=== PATIENT | male | born 1950 | race Caucasian/White ===

== ENCOUNTER 2024-07-26 08:01 | Observation (INO) ==
--- NOTE | 2024-05-10 15:04 | PAT Medication Instructions ---
Medication Instructions Date of Service May 10, 2024 Home Medications cholecalciferol (vitamin D3) 25 mcg (1,000 unit) chewable tablet (Vitamin D3) 3,000 unit PO BID lisinopril 10 mg tablet 10 mg PO QAM simvastatin 40 mg tablet 20 mg PO HS omeprazole 20 mg capsule,delayed release 20 mg PO BID amlodipine 5 mg tablet 5 mg PO HS DO NOT take the morning of surgery cholecalciferol (vitamin D3) 25 mcg (1,000 unit) chewable tablet (Vitamin D3) 3,000 unit PO BID lisinopril 10 mg tablet 10 mg PO QAM Take morning of surgery With a small sip of water, OTHERWISE NOTHING TO EAT OR DRINK AFTER MIDNIGHT: omeprazole 20 mg capsule,delayed release 20 mg PO BID Take evening before surgery cholecalciferol (vitamin D3) 25 mcg (1,000 unit) chewable tablet (Vitamin D3) 3,000 unit PO BID simvastatin 40 mg tablet 20 mg PO HS omeprazole 20 mg capsule,delayed release 20 mg PO BID amlodipine 5 mg tablet 5 mg PO HS Other Notes If you have any questions please call us at [phone] or [phone] or [phone] or [phone]
--- NOTE | 2024-05-13 10:32 | Anesthesiology Consultation ---
Date of Service May 13, 2024 Assessment & Plan (1) Encounter for pre-operative examination: - Infectious disease screening: Per assessment on 05/13/24: No known recent infectious disease contacts. Patient was Covid positive 04/20/24 (home test): congestion, cough > resolved. Patient can proceed as scheduled without additional preop Covid testing or additional Covid contact precautions per protocol. - Outpatient joint assessment: Pt currently scheduled for inpatient pathway. If surgeon requests review for outpatient joint pathway, patient is an acceptable candidate for outpatient joint program from anesthesia standpoint pending surgeon's office assessment that patient is motivated, has good support and completes [facility] Day Joint Program preop requirements. - Patient acceptable risk for surgery pending surgeon-ordered PCP preop evaluation (Dr. Daniela Hare, appt 05/26). Chart Review Chart Review: Patient seen in Pre Admission Testing Teaching & Discussion Pre-Anesthesia Teaching/Discussion Notes: Instructed NPO after midnight before surgery,except medications with 15 cc of water. Medication instructions provided according to the PAT guidelines. History Surgery Operation Date: 06/07/24 07:00 Proposed Procedures p Left Total Knee Arthroplasty - Abram Kinney MD Height/Weight Height: 5 ft 7 in Weight: 97.7 kg Allergies Allergy/AdvReac Type Severity Reaction Status Date / Time Penicillins Allergy Intermediate Diffuse Verified 05/10/24 16:19 rash Medications Home Medications Medication Instructions Recorded Confirmed Last Taken cholecalciferol (vitamin D3) 25 3,000 unit PO BID 07/27/19 05/10/24 08/10/19 mcg (1,000 unit) chewable tablet (Vitamin D3) lisinopril 10 mg tablet 10 mg PO QAM 07/27/19 05/10/24 08/10/19 simvastatin 40 mg tablet 20 mg PO HS 07/27/19 05/10/24 08/09/19 omeprazole 20 mg capsule,delayed 20 mg PO BID 08/01/19 05/10/24 08/10/19 release amlodipine 5 mg tablet 5 mg PO HS 05/10/24 05/10/24 Unknown Past Medical History Medical History History of COVID-19 04/20/24 (home test): congestion, cough > resolved Hyperlipidemia Hypertension Osteoarthritis Exercise / Class Metabolic Activity II 4-5 Yardwork/Stairs/Walk up hill (one FS: No CP, no SOB) Past Surgical History Surgical History History of colonoscopy History of ear surgery Ear drum repair History of lung surgery Right side "scar tissue removed" (2006) History of surgery on arm right, with hardware Hx of hand surgery left, with hardware Hx of knee surgery ACL repair, right Hx of parathyroidectomy Hx of surgical procedure left leg Hx of surgical procedure Left Tibia Hardware Removal Past Anesthesia History No Hx of Anesthesia Complications and No Family Hx of Anesthesia Complications History of PONV No Hx of PONV and No Hx of Motion Sickness Social History Smoking Status: Former smoker Do You Dip or Chew Tobacco: No Smoking End Date: Quit 1984 Hx Alcohol Use: Yes Alcohol type: beer alcohol intake frequency: a few times a month Hx Substance Use: No substance use type: does not use Review of Systems Patient denies chest pain, shortness of breath, dyspnea on exertion, fever, chills, cough, wheezing, palpitations. Physical Exam Vital Signs BP 143/79 P 62 TEMP 98.1 SP02 96%RA RESP 18 Physical Full cervical extension range of motion. Full TMJ range of motion. TMD 2.5 finger breaths Mallampati Score III Dentition: missing sides > Getting 2 teeth pulled 05/27/2024 (surgeon aware) Lungs: clear throughout to auscultation Cardiac: regular rate and rhythm, no murmurs noted Spine: normal Carotid arteries: negative bruit Extremities: no LE edema Lab Results Anesthesia Preop Results Results Anesthesia Widget: WBC 7.54 K/ul (4.8-10.8) 05/13/24 Hgb 13.8 g/dl (14.0-18.0) L 05/13/24 Hct 42.0 % (42.0-52.0) 05/13/24 Plt 249 K/uL (130-400) 05/13/24 Na 138 mmol/L (136-145) 05/13/24 K 3.8 mmol/L (3.5-5.1) 05/13/24 Cl 105 mmol/L (98-107) 05/13/24 CO2 26 mmol/L (21-32) 05/13/24 BUN 13 mg/dl (6-23) 05/13/24 Creat 0.90 mg/dl (0.6-1.4) 05/13/24 Glucose Level 92 mg/dl (70-99(Fasting)) 05/13/24 PT 10.6 Seconds (9.0-12.0) 05/13/24 PTT 27 Seconds (21-31) 05/13/24 INR 1.0 (0.9-1.1) 05/13/24 Blood Type A Positive 05/13/24 Antibody Screen NEGATIVE 05/13/24 Testing Electrocardiogram Date: 05/13/24 SB at 56bpm. "Otherwise normal ECG" Chest X-Ray Date: 05/13/24 FINDINGS: There are stable postoperative findings within the right upper lung. No pneumothorax or pleural effusion. There is no consolidation to suggest pneumonia. Cardiomegaly is unchanged. No evidence for pulmonary edema. IMPRESSION: No acute cardiopulmonary findings. No change in appearance of the chest.
[~2024-07-26 08:01] MED LIST: ALLERGY Noted to ORDERED Medication SCH; BUPIVACAINE 0.25% PF 30 ML VIAL ONE; BUPIVACAINE 0.5 % 5 MG/1 ML PF 10ML VIAL ONE; ceFAZolin 2000MG 2,000 MG/15 ML SYR IV SCH
[2024-07-26] MEDS: SODIUM CHLORIDE 0.9% 1,000 ML IV SCH (08:49)
[2024-07-26] MEDS: GABAPENTIN 300 MG CAP PO SCH (08:49)
[2024-07-26] MEDS: CeleBREX 200 MG CAP PO SCH (08:49)
[2024-07-26] MEDS: ACETAMINOPHEN 500 MG TAB PO SCH ×2 (08:49→15:30)
[2024-07-26] MEDS: dexAMETHasone**PF** 10 MG/ML VIAL IV SCH (08:49)
[2024-07-26] MEDS: METOCLOPRAMIDE HCL 10 MG TABLET PO SCH (08:49)
[2024-07-26] MEDS: oxyCODONE HCL 10 MG TABCR (OxyCONTIN) PO SCH (08:49)
[2024-07-26] MEDS: traMADol HCL 50 MG TABLET PO SCH (08:50)
[2024-07-26] MEDS: LR 60ML/HR IV SCH (08:50)
[2024-07-26] MEDS ORDERED: ONDANSETRON INJ 2 MG/ML 2 ML VIAL ONE (09:04)
[2024-07-26] MEDS ORDERED: PHENYLEPHRINE 100MCG/ML 5ML SYR ONE (09:04)
[2024-07-26] MEDS ORDERED: MIDAZOLAM HCL 1 MG/ML 2ML VIAL ONE (09:05)
[2024-07-26] MEDS ORDERED: PROPOFOL IV EMULSION 10 MG/ML 20 ML VIAL IV ONE ×3 (09:07→12:53)
[2024-07-26] MEDS ORDERED: fentaNYL citrate PF 100 MCG/2 ML VIAL IV PRN (09:14)
[2024-07-26] MEDS ORDERED: ePHEDrine sulfate 50 MG/ML AMP IV PRN (09:14)
[2024-07-26] MEDS ORDERED: ONDANSETRON INJ 2 MG/ML 2 ML VIAL IV PRN ×2 (09:14→15:00)
[2024-07-26] MEDS ORDERED: PROMETHAZINE HCL 6.25 MG in SODIUM CHLORIDE 0.9% 50 ML IV PRN (09:14)
[2024-07-26] MEDS ORDERED: ATROPINE SULFATE 0.1 MG/ML 10ML SYR IV PRN (09:14)
[2024-07-26 09:36] LABS: Partial Thromboplastin Time 28 Seconds (21-31); Prothrombin Time 10.8 Seconds (9.0-12.0)
--- NOTE | 2024-07-26 09:41 | History & Physical Bridge Note ---
Date of Service July 26, 2024 History & Physical Bridge Note I have examined the patient, reviewed the History & Physical and in the interval since the performance of the History & Physical I have noted the following changes of clinical significance: no changes noted
[2024-07-26] MEDS: TRANEXAMIC ACID 1,000 MG **IV Pre-op IV SCH (10:10)
[2024-07-26] MEDS: ceFAZolin 2000MG 2,000 MG/15 ML SYR IV ONE (10:26)
[2024-07-26] MEDS ORDERED: ePHEDrine sulfate 50 MG/5 ML SYR ONE (10:46)
[2024-07-26] MEDS: ORTHO JOINT ANESTHETIC ONE (11:43)
[2024-07-26] MEDS: VANCOMYCIN HCL 1000MG/20ML VIAL ONE ×2 (12:32→12:50)
[2024-07-26] MEDS: ROPIV 0.5% 246mg, Ketorolac 30mg, EPINEPHrine 0.5mg in NSS INFIL SCH (12:47)
--- NOTE | 2024-07-26 13:51 | Post Operative Brief Note ---
Immediate Post Op Note Date of Surgery July 26, 2024 Pre & Post Diagnosis Operation Date: 07/26/24 10:20 Pre-Op Diagnosis: Left Knee Osteoarthritis Post-Op Diagnosis: Left Knee Osteoarthritis I identified the patient and participated in the time-out.: Yes Procedure Operation Date: 07/26/24 10:20 Actual Procedures p Left Total Knee Arthroplasty(Left) - Abram Kinney MD Surgeon Abram Kinney MD Business Development Associate [facility] [address] office assistant no resident or fellow available Estimated Blood Loss 10 Findings Consistent with Post-Op Diagnosis Anesthesia Type MAC Spinal Regional Complications none Disposition Disposition: Recovery Room
--- NOTE | 2024-07-26 13:55 | Operative Report ---
Post Operative Report Pre & Post Diagnosis Operation Date: 07/26/24 10:20 Pre-Op Diagnosis: Left Knee Osteoarthritis Post-Op Diagnosis: Left Knee Osteoarthritis I identified the patient and participated in the time-out.: Yes Procedure Operation Date: 07/26/24 10:20 Actual Procedures p Left Total Knee Arthroplasty(Left) - Abram Kinney MD Surgeon Abram Kinney M.D. [place] [employer] [facility] physicians health care assistant no resident or fellow available Estimated Blood Loss 10 Findings Consistent with Post-Op Diagnosis Specimens bone and soft tissue Anesthesia Type MAC Spinal Regional Description of Procedure Patient was taken to the operating room and placed under IV sedation with spinal anesthesia. Peripheral nerve block was given preoperatively. He was given 2 g of IV Ancef for surgical prophylaxis. He was given 1 g of IV TXA preoperatively for bleeding prophylaxis. Time out was performed. He was prepped and draped in routine sterile fashion. I was present during the entire case. Please see Dr. Kinney's operative report for further details regarding today's procedure. Patient was awakened and transferred to the recovery room in stable condition. I attest to the content of the Intraoperative Record and any orders documented therein. Any exceptions are noted below.
--- NOTE | 2024-07-26 14:54 | XRay Report ---
XR knee LT 1 or 2V routine HISTORY: 74 years-old Male Surgical Post Op COMPARISON: CT 07/21/2024 TECHNIQUE: 2 views of the left knee FINDINGS: Satisfactory alignment of the total joint arthroplasty with patellar resurfacing. Anterior midline sk in brit with expected postoperative soft tissue swelling and deep tissue air. Unchanged chronic sc lerosis and cortical thickening of the proximal tibia. IMPRESSION: Satisfactory alignment of the total joint arthroplasty. ACT 112: Negative or not required by law. The above report was generated using voice recognition software. It may contain grammatical, syntax o r spelling errors. Electronically signed by: Rachid López M.D. 07/26/2024 2:52 PM
[2024-07-26] MEDS ORDERED: traMADol HCL 50 MG TABLET PO PRN (15:00)
[2024-07-26] MEDS ORDERED: MAGNESIUM HYDROXIDE SUSP 30 ML UDC PO PRN (15:00)
[2024-07-26] MEDS ORDERED: oxyCODONE HCL IR 5 MG TAB (IMMEDIATE RELEASE) PO PRN (15:00)
[2024-07-26] MEDS ORDERED: bisacodyL 10 MG SUPP PR PRN (15:00)
[2024-07-26] MEDS ORDERED: TAMSULOSIN HCL 0.4 MG CAP PO PRN (15:00)
[2024-07-26] MEDS ORDERED: NALOXONE HCL 0.4 MG/1 ML VIAL/CARP IV PRN (15:00)
[2024-07-26] MEDS ORDERED: HYDROmorphone INJ 0.5 MG/0.5 ML SYR IV PRN (15:00)
[2024-07-26] MEDS ORDERED: HYDROmorphone INJ 1 MG/ML SYRINGE IV PRN (15:00)
[2024-07-26] MEDS: LR 500ML BOLUS, THEN 15ML/HR IV SCH (15:02)
[2024-07-26] MEDS: ceFAZolin 2,000 MG/15 ML IV PUSH IV ONE (15:02)
[2024-07-26] MEDS: KETOROLAC TROMETHAMINE 15 MG/ML VIAL IV SCH (15:30)
--- NOTE | 2024-07-26 16:48 | Orthopedic Progress Note ---
Date of Service July 26, 2024 Assessment & Plan (1) S/P total knee arthroplasty: Plan: Postop day 0-left total knee arthroplasty with Dr. Kinney Regular diet has been ordered. Out of bed with nursing this evening and start OT and PT tomorrow. He may weight-bear as tolerated on left lower extremity with the assistance of a walker at all times. Knee immobilizer to left knee when out of bed for the next 2 to 3 days. Home medications have been continued. Eliquis to start tomorrow. He will be on this for 2 to 4 weeks after surgery. Thigh-high KRISHNA stockings and AV impulse boots during his inpatient stay. Plans for CBC, BMP tomorrow morning. Pain medication as prescribed. Plans for discharge home in the next day or 2 with home health. Will re-eval in the AM and discuss possible discharge. Admission and Anticipated Discharge Date Admission Date: July 26, 2024 Ar Bob is resting in bed. He states he does feel uncomfortable in the bed. He does not have a significant amount of pain in his left leg. He states that he does feel that the spinal have worn off. Denies any numbness or tingling in his leg. His is at bedside. He has not had anything to eat. Denies any postoperative nausea, vomiting, lightheadedness or dizziness, chest pains or shortness of breath. Physical Exam Musculoskeletal: Exam of his left lower extremity: Distal pulses are 1+. Toes are warm. Full active flexion extension of all of his toes. Strength is 5/5 with dorsiflexion of the great toe, plantarflexion of the great toe and dorsiflexion, plantarflexion, inversion and eversion of the left ankle. Normal sensation throughout the left. He is able to independently straight leg raise his left leg. Tolerates logrolling of his hip. His postoperative dressings are clean, dry and intact. Left in place today. Results & Data Vital Signs (Past 12 Hours) Vital Signs Temp Pulse Pulse Resp BP Pulse Ox O2 Del Method 07/26/24 16:00 36.4 C L 80 16 130/72 96 Nasal Cannula 07/26/24 15:30 36.4 C L 82 16 127/74 96 Nasal Cannula 07/26/24 15:00 36.4 C L 90 16 110/66 97 Nasal Cannula 07/26/24 14:40 36.6 C 84 12 103/70 95 Nasal Cannula 07/26/24 14:30 86 20 102/72 95 Nasal Cannula 07/26/24 14:20 88 14 115/59 L 94 Room Air 07/26/24 14:10 93 H 12 98/57 L 96 Oxymask 07/26/24 14:00 89 17 127/75 97 Oxymask 07/26/24 13:52 37.2 C 96 H 18 118/89 94 Oxymask 07/26/24 09:09 36.6 C 70 20 148/91 H 96 Room Air O2 Flow Rate 07/26/24 16:00 2 07/26/24 15:30 2 07/26/24 15:00 2 07/26/24 14:40 2 07/26/24 14:30 2 07/26/24 14:20 07/26/24 14:10 4 07/26/24 14:00 6 07/26/24 13:52 8 07/26/24 09:09 Laboratory Results Lab Results 07/26/24 Range/Units 08:30 PT 10.8 (9.0-12.0) Seconds INR 1.0 (0.9-1.1) APTT 28 (21-31) Seconds PTT Ratio 1.0 POC Glucose 111 H (70-99) mg/dl Blood Type A Positive Antibody Screen NEGATIVE Diagnostic Findings XR knee LT 1 or 2V routine HISTORY: 74 years-old Male Surgical Post Op COMPARISON: CT 07/21/2024 TECHNIQUE: 2 views of the left knee FINDINGS: Satisfactory alignment of the total joint arthroplasty with patellar resurfacing. Anterior midline skin brit with expected postoperative soft tissue swelling and deep tissue air. Unchanged chronic sclerosis and cortical thickening of the proximal tibia. IMPRESSION: Satisfactory alignment of the total joint arthroplasty.
[2024-07-26] MEDS: TRANEXAMIC ACID / 0.7% NACL 1,000 MG/100 ML BAG IV SCH (20:59)
[2024-07-26] MEDS: CHOLECALCIFEROL 25 MCG (1000 UNITS) TAB PO SCH (21:00)
[2024-07-26] MEDS: amLODIPine BESYLATE 5 MG TAB PO SCH (21:00)
[2024-07-26] MEDS: SENNA 8.6 MG TAB PO SCH (21:00)
[2024-07-26] MEDS: DOCUSATE SODIUM 100 MG CAP PO SCH (21:00)
[2024-07-26] MEDS: ATORVASTATIN 20 MG TAB PO SCH (21:01)
[2024-07-26] MEDS: ceFAZolin 2000MG 2,000 MG/15 ML SYR IV SCH (21:18)
--- OUTSIDE RECORDS SUMMARY | 2024-07-27 01:40 | External Medical Summary | Continuity of Care Document ---
Author Name Unknown Organization [id number] Address [address] [place] [address] [id number] Care Team Providers Care Membership Assistant Name Role Phone Zion Hood Primary Care Physician [phone] Encounter [facility] [id number] Date(s): 07/20/24 - 07/20/24 [facility] [address] [address] [id number] [facility] [address] [place] [id number] Encounter Diagnosis Primary osteoarthritis of left knee(Discharge Diagnosis) - 07/20/24 Discharge Disposition: Home or Self Care Attending Physician: MD Gregoria, Abram Souza Referring Physician: MD Kinney Paul S Allergies, Adverse Reactions, Alerts Substance Criticality Severity Reaction Reaction Severity Status penicillins Active Medications lisinopril 10 mg oral tablet Start: 09/14/13 8:01:00 AM EST, 1 tab, PO, Daily Start Date: 09/14/13 Status: Ordered multivitamin Start: 08/29/21 10:51:00 AM EST, 1 tab, PO, Daily Start Date: 08/29/21 Status: Ordered omeprazole Start: 08/01/19 8:06:00 AM EST, 20 mg =, PO, bid Start Date: 08/01/19 Status: Ordered simvastatin 40 mg oral tablet Start: 09/14/13 8:01:00 AM EST, 1 tab, PO, qhs Start Date: 09/14/13 Status: Ordered Vitamin D3 Start: 08/03/18 7:54:00 AM EST, 3000, Daily Start Date: 08/03/18 Status: Ordered Problem List Condition Confirmation Course Effective Dates Status Health Status Informant Fracture of middle phalanx of finger Confirmed Active Hypercholesterolemia Confirmed Active Hypertensive disorder Confirmed Active Knee pain Confirmed Active Retained orthopedic hardware Confirmed Active Osteoarthritis of knee Confirmed Active Primary osteoarthritis of left knee Confirmed Active Weight monitoring Confirmed Active Diagnosis Diagnosis Type Effective Dates Health Status Clinical Service Informant Primary osteoarthritis of left knee Discharge Diagnosis 07/20/24 Non-Specified Procedures Procedure Date Related Diagnosis Body Site Status Incision and removal of orth opedic device 1 08/11/19 Completed 1Deep hardware removal left tibia Social History Social History Type Response Smoking Status Never smoked cigaret louie Sex Male Sex Representation Male (finding) Patient Care team information Care Team Related Persons Name: AB ZAMORA
[2024-07-27 01:48] VITALS: RESP 18
[2024-07-27 04:46] VITALS: TEMP 98.1
[2024-07-27 07:17] VITALS: BP 119/61; PULSE 73; O2SAT 97
[2024-07-27 08:04] LABS: Hematocrit (blood only) 37.8 % (42.0-52.0); Hemoglobin 12.3 g/dl (14.0-18.0); Mean Corpuscular Hgb Conc 32.5 g/dL (32.0-36.0); Mean Corpuscular Volume 89.2 fL (80.0-100.0); Mean Platelet Volume 9.4 fL (9.4-12.4); Platelet Count 273 K/uL (130-400); RDW Coefficient of Variation 13.2 % (11.5-14.5); RDW Standard Deviation 42.6 fL (36.4-46.3); Red Blood Count 4.24 M/uL (4.70-6.10); White Blood Count 21.68 K/ul (4.8-10.8)
[2024-07-27 08:17] LABS: BUN Creatinine Ratio 26.6 (10-20); Calcium 8.5 mg/dl (8.6-10.3); Potassium 4.2 mmol/L (3.5-5.1)
[2024-07-27] MEDS ORDERED: NON-FORMULARY MEDICATION (Multivitamin Tablet) PO SCH (09:00)
[2024-07-27] MEDS: PANTOprazole 40 MG TAB PO SCH (09:15)
[2024-07-27] MEDS: APIXABAN 2.5 MG TAB PO SCH (09:15)
[2024-07-27] MEDS: lisinopril 10 MG TAB PO SCH (09:15)
[2024-07-27] MEDS: dexAMETHasone 4 MG TAB PO SCH (09:15)
[2024-07-27] MEDS: MULTIVITAMIN TAB PO SCH (09:15)
--- NOTE | 2024-07-27 10:39 | Orthopedic Progress Note ---
Date of Service July 27, 2024 Assessment & Plan (1) S/P total knee arthroplasty: Plan: Doing well. White count likely elevated secondary to stress and perioperative steroids. He is stable for discharge. He has follow-up in 2 weeks. If there is any problems with pain fevers swelling wound drainage or any other problems or questions please contact my office. He will be on oxycodone and Ultram. Stool softener plus his regular medications and the Eliquis. The importance of the Eliquis is discussed. Home therapy and nursing. Wound care and bathing instructions are given. Rest most of the time elevate and ice the knee. Icing instructions are given 15 to 20 minutes every 3 hours or so. Do not ice continuously. Activity levels should be off of his feet 80 to 90% of the time and standing and walking for only short periods of time. Do not advance activities beyond what we have discussed. Use the walker at all times. He does not need the knee immobilizer. X-rays are reviewed along surgical findings. Admission and Anticipated Discharge Date Admission Date: July 26, 2024 Subjective Doing well. Pain is minimal. Already had PT and OT and did well. Has been out of bed. Using a walker. No tingling or numbness. Pain is well-controlled. No chest pains or shortness of breath. He is tolerating an oral diet. Physical Exam Physical Exam: He is alert and in no acute distress. DP and PT pulses are both 1+. Sensation is intact throughout the left foot. He has 5 out of 5 ankle and toe plantarflexion dorsiflexion inversion and eversion strength. He is able to do a straight leg raise without significant lag. He is able to reposition himself back into bed from the chair. Dressing is clean and dry. Foot swelling is minimal. Results & Data Vital Signs (Past 12 Hours) Vital Signs Temp Pulse Resp BP Pulse Ox O2 Del Method 07/27/24 07:16 36.7 C 73 18 119/61 97 Room Air 07/27/24 04:44 36.7 C 77 18 112/65 96 Room Air 07/27/24 01:47 36.6 C 81 18 128/69 94 Room Air Laboratory Results Laboratory Results WBC 21.68 K/ul (4.8-10.8) H 07/27/24 07:07 RBC 4.24 M/uL (4.70-6.10) L 07/27/24 07:07 Hgb 12.3 g/dl (14.0-18.0) L 07/27/24 07:07 Hct 37.8 % (42.0-52.0) L 07/27/24 07:07 MCV 89.2 fL (80.0-100.0) 07/27/24 07:07 MCH 29.0 pg (25.0-34.0) 07/27/24 07:07 MCHC 32.5 g/dL (32.0-36.0) 07/27/24 07:07 RDW Std Deviation 42.6 fL (36.4-46.3) 07/27/24 07:07 RDW Coeff of Ginger 13.2 % (11.5-14.5) 07/27/24 07:07 Plt Count 273 K/uL (130-400) 07/27/24 07:07 MPV 9.4 fL (9.4-12.4) 07/27/24 07:07 PT 10.8 Seconds (9.0-12.0) 07/26/24 08:30 INR 1.0 (0.9-1.1) 07/26/24 08:30 APTT 28 Seconds (21-31) 07/26/24 08:30 PTT Ratio 1.0 07/26/24 08:30 Sodium 139 mmol/L (136-145) 07/27/24 07:07 Potassium 4.2 mmol/L (3.5-5.1) 07/27/24 07:07 Chloride 107 mmol/L (98-107) 07/27/24 07:07 Carbon Dioxide 24 mmol/L (21-32) 07/27/24 07:07 Anion Gap 8 (3-11) 07/27/24 07:07 BUN 37 mg/dl (6-23) H 07/27/24 07:07 Creatinine 1.39 mg/dl (0.6-1.4) 07/27/24 07:07 Est Cr Clr Drug Dosing 51.0 ml/min 07/27/24 07:07 eGFR 52.87 07/27/24 07:07 BUN/Creatinine Ratio 26.6 (10-20) H 07/27/24 07:07 Glucose 141 mg/dl (70-99(Fasting)) H 07/27/24 07:07 POC Glucose 111 mg/dl (70-99) H 07/26/24 08:30 Calcium 8.5 mg/dl (8.6-10.3) L 07/27/24 07:07 Blood Type A Positive 07/26/24 08:30 Antibody Screen NEGATIVE 07/26/24 08:30 Impressions Knee X-Ray 07/26/24 13:59 XR knee LT 1 or 2V routine HISTORY: 74 years-old Male Surgical Post Op COMPARISON: CT 07/21/2024 TECHNIQUE: 2 views of the left knee FINDINGS: Satisfactory alignment of the total joint arthroplasty with patellar resurfacing. Anterior midline skin brit with expected postoperative soft tissue swelling and deep tissue air. Unchanged chronic sclerosis and cortical thickening of the proximal tibia. IMPRESSION: Satisfactory alignment of the total joint arthroplasty. ACT 112: Negative or not required by law. The above report was generated using voice recognition software. It may contain grammatical, syntax or spelling errors. Electronically signed by: Rachid López M.D. 07/26/2024 2:52 PM
--- NOTE | 2024-07-27 10:46 | Operative Report ---
Post Operative Report Pre & Post Diagnosis Operation Date: 07/26/24 10:20 Pre-Op Diagnosis: Left Knee Osteoarthritis Post-Op Diagnosis: Left Knee Osteoarthritis I identified the patient and participated in the time-out.: Yes Procedure Operation Date: 07/26/24 10:20 Actual Procedures p Left Total Knee Arthroplasty(Left) - Abram Kinney MD Surgeon Abram Kinney MD Wringer Operator Cori Luna physicians ophthalmic surgical assistant no resident or fellow available Estimated Blood Loss 10 Findings Consistent with Post-Op Diagnosis Specimens None Anesthesia Type MAC Spinal Regional Complications none Disposition Accompanied Patient To Recovery: No Disposition: Recovery Room Indications Paulino is 74 years old. He has severe osteoarthritis of his left knee. Approximately 25 years ago he had a proximal tibial osteotomy with a dynamic external fixator. This did not heal. He subsequently required an ORIF with a bone graft plate and screws. This subsequently healed but his knee arthritis has continued to progress. He is very active and plays softball. In preparation for knee replacement a couple years ago I went back operated on him and took out the plate and screws debrided some nonviable bone graft and took m ultiple cultures of the tibia none of which grew any bacteria. He recently had a tooth extracted that is completely healed. His surgery was postponed initially because of that. The previous surgery had resulted in a small medial cortical defect. This was assessed on a preoperative CT scan showing a persistent bony defect less than 2 cm in size. This was noted at the previous surgery. Because of this I have recommended that we use a stem on the tibia to bypass this defect for added stability and safety. Description of Procedure Informed consent obtained. Patient identified. He identified the procedure site as the left knee. I marked with my initials. Preop surgical timeout performed. Preop dose of IV antibiotics given. Taken to the operating room positioned supine on the OR table. The anesthetic was administered. Tourniquet applied to the left thigh. A bump under the left hip and a padded bump under the left calf. The leg was prepped and draped in usual sterile fashion. The leg was free of any superficial wounds. DVT prophylaxis intraoperatively with a foot pump on the nonoperative leg. Postoperatively early mobility mechanical devices and Eliquis. The exam under anesthesia showed 1+ MCL laxity at 20 degrees knee flexion slight LCL laxity in the same position. The knee was stable in full extension with a fixed varus deformity. There was a prior proximal medial tibial incision just medial to midline. Positive Carlos Manuel intact posterior drawer range of motion 0/7/130. Limb exsanguinated the Esmarch. Tourniquet inflated to 250 mmHg. The previous incision was opened at its proximal extent and then this was extended in a lazy S type fashion towards the midline and proximally into the galena version tissu e. Minimal flap was elevated medially. The patellar tendon was identified along with its medial aspect. Dense scar tissue was electrocauterized distally down to the level of the tibia. A medial parapatellar arthrotomy was performed. An extensile medial release was performed. Retropatellar fat pad tissue removed. Soft tissue on the anterior aspect of the distal femur was excised. There was some synovitis in the suprapatellar pouch and lateral gutter which showed some hemosiderin staining and this was debrided. The patella was mobile and no lateral release was performed. Patellar cartilage showed mostly grade 1 change. The lateral compartment was normal in terms of cartilage. There were a couple bone spurs on the superior patella and extensive spurring about the tibiofemoral joint mainly medial more so than lateral. There were severe grade 4 changes with eburnation and wear of the medial compartment and wearing of the tibial spines. Large osteophytes were noted. Osteophytes throughout the knee were debrided as encountered. The knee was able to be flexed and the patella easily everted. The ACL was absent. Notch osteophytes were debrided. The PCL was resected and the tibia was subluxated. Significant wear and cupping of the tibia. Medial osteophytes debrided around to the posterior medial corner. The release was extended around the posterior medial corner and down the posterior medial tibia later. Extensive scarring in this area. A fuel pilot engineer hole was drilled just in front of and slightly lateral to the medial tibial spine based upon preoperative templating and intramedullary norman was introduced. The 3 degree cutting block was applied and set to resect 10 mm off of the lateral side corresponding to about a 4 mm cut medially. This guide was pinned into place. The extramedullary alignment norman was applied and found to have varus alignment for the cut. This was manually corrected back to the desired position parallel to the long axis of the tibia intersecting the second ray and bisecting the ankle joint and pinned into place. This cut was then made. A fuel pilot engineer hole was drilled into the distal femur just above the PCL insertion. Intramedullary norman inserted with the cutting jig set to left knee 7 degrees based on preoperative templating and a an 11 mm thick cut based upon flexion contracture. This was pinned in the place and the cut was made. The extension gap at this point was a symmetric 8. The epicondylar axis was marked out distal femoral sizing block was applied. It measured a 7-1/2. It was pinned for an 8 and the 7 block was applied. I ensured that there was no anterior notching. The collateral ligaments were protected. The alignment match the epicondylar axis. Rectangular flexion gap. Cuts were made. Osteophytes posteriorly mostly medial more so than lateral removed. A 10 block could be applied with some laxity laterally. Also fit and extension. With further releases medially I was able to get a 12 mm block in both in flexion and extension with no residual laxity and full extension of the knee. The box cutting guide was applied lateralized and the box cut was made. The trial femoral component was applied and the lug holes were drilled. Hand reaming was performed starting at about 9.5 mm on the tibia to the depth for a 110 mm press-fit stem. This continued up to 13 and 14 mm where there was good cortical hand chatter. I then went up to 15 mm to accommodate for the press-fit stem. This trial component was then assembled with a 7 baseplate and a straight 110 mm stem. The remainder of the proximal tibia was prepared with the entry reamer and the keel punch. The trial fit nicely and aligned to the tibial tubercle without any overhang. It was a couple millimeters lateral to the lateral cortex. This component was selected and did not need any offset. Trialing was performed with 10 and 12 which both worked out well. Attention was turned to the patella which measured 25 mm in thickness. The guide was set to preserve 14 mm of bone. A 38 patella was selected which gave a very good coverage. This cut was made and the residual patellar thickness was 15 mm. The paddle was aligned with the knee in slight flexion and the lug holes were drilled. There was some cartilage laterally which was debrided underneath the implant to the level of bone for cementation. The lug holes were drilled. Patella tracking was off with tourniquet up however when the tourniquet was down patellar tracking was fine with no hands technique. The bony surfaces were irrigated. Eburnated areas medially were drilled with a 2 mm drill bit. Ortho joint mix injected in the back of the knee. 2 bags of Simplex P cement with 2 total grams of vancomycin were mixed. Vacuum mixing. The smears are paced on the posterior condyle. The femur tibia and patella were cemented into place and held in extension with a 10 mm spacer until the cemented hardened. Cement was placed on the surface of the tibia and around the proximal 4 to 6 cm of the RP stem but not on the press-fit part. All components were completely seated. Extraneous cement was removed. Once the cemented hardened the tourniquet was let down after approximately 130 minutes of inflation. There was no significant bleeding. Trialing was performed with a 10 and 12 mm thick polyethylene. The 12 mm had no laxity at 0 mid position or 90 degrees and allow full extension. This component was selected. The back of the knee was inspected for bleeding and cement which was dressed as necessary. Irrigation was performed and the final polyethylene was applied. [place] assisted flexion with extensor mechanism close was 130 degrees. The knee had 0 degrees of extension and the patellar thickness was 25 mm. The extensor mechanism was closed above the equator the patella with interrupted #2 FiberWire and below the equally to the patella with running and interrupted #1 and 0 Vicryl's. I half gram of vancomycin was applied deep to the extensor mechanism and 1/2 g superficial. The skin was then closed with 0 and 2-0 Vicryl in a layered fashion followed by brit. The leg was cleaned with wet and dry sponges saw sterile dressing is applied Xeroform 4 x 4's ABD soft wrap full- length Jimy wrap knee immobilizer. Patient awakened from anesthesia without difficulty and taken to the recovery room in stable condition. The resected bone and soft tissue were sent for specimen. There were no complications. Counts were correct and blood loss is estimated to be 10 cc. At the conclusion of the operation spoke to his informed her my findings and discussed the postoperative plan and recommendations. Patient will be rehabilitated according to the standard total knee protocol. Eliquis will begin the morning after surgery. He may weight- bear as tolerated. Components inserted where the J&J attune size 7 left cemented posterior stabilized femoral component. A size 7 rotating platform revision tray with a 14 mm diameter x 110 mm length stem extension a 38 mm patella and a size 7 x 12 mm thick rotating platform insert. I attest to the content of the Intraoperative Record and any orders documented therein. Any exceptions are noted below.
--- NOTE | 2024-07-27 11:06 | Discharge Summary ---
Date of Service July 27, 2024 Principal Diagnosis s/p left knee total arthroplasty Discharge Data Allergies Allergy/AdvReac Type Severity Reaction Status Date / Time Penicillins Allergy Intermediate Diffuse Verified 07/26/24 08:32 rash Procedures Performed Operation Date: 07/26/24 10:20 Actual Procedures p Left Total Knee Arthroplasty(Left) - Abram Kinney MD Hospital Course (1) S/P total knee arthroplasty: Paulino underwent a left total knee arthroplasty on 07/26/[address] Kinney. He was observed overnight in the hospital and pain was well controlled. He did not have any adverse events. Received 24 hours of antibiotics. Postoperative x-ray demonstrated expected findings. Postop labs showed an elevated white blood cell count at 21.68 likely secondary to stress and steroids. He participated with PT and OT and was cleared for discharge. He is comfortable being discharged home today. Evaluated by Dr. Kinney on day of discharge. Post op instructions were reviewed in detail. Will be discharged home with pain medication and eliquis. Recommend stool soft eners. He has home health scheduled for the next 2 weeks. Follow up appointment scheduled with Dr. Kinney on 08/08/2024. Total Time Total Time Spent Total Time Spent (In Minutes): 20 Discharge Plan Discharge Items Patient Disposition: Home - Home Health Services Reason For Visit: Left Knee Osteoarthritis Discharge Diagnosis: s/p left knee total arthroplasty Activity: Per Instructions section Non-emergency contact: Surgeon Call non-emergency contact if: your pain is not controlled, your rectal temperature is above 100.4, your wound has increased drainage and your wound pain has increased Follow-up/Referrals: Abram Kinney MD [Surgeon] - 08/08/24 1:00 pm Flavio Weston MD [Primary Care Provider] - Diet: Heart Healthy Addtl Attending Provider Instructions: New Medicine: * You will likely be taking one or more of these medications: 1. Eliquis 2.5 mg twice daily. You will be on this for 2-4 weeks after surgery. Do not take NSAIDS (ibuprofen, aleve, advil) while on Eliquis Aspirin, 81 mg is OK. If medication is very expensive, do not fill it and call our office and we will send a coupon. 2. oxycodone - Take 1-2 tablets every 4-6 hours as needed for pain. Take for severe pain, alternate with Tramadol 3. Tramadol - Take, 1-2 tablets every 4-6 hours as needed for pain. Take for mild-moderate pain. Alternate with Oxycodone. 4. Colace & Senokot - Take to prevent constipation which can be caused by narcotics. These can be bought [id number] at the pharmacy 5. Tylenol - extra strength, take 2 tablets (1000mg) every 8 hours to control your pain. Do this consistently for the first 3-7 days, then as needed. * The most common side effects of pain medicine and iron are nausea and constipation. If nausea or constipation is too much of a problem or if you have any questions about your new medicines or doses, call [facility] at . We will try to help you manage these issues. "VERY IMPORTANT TO READ AND REVIEW" Blood Clots and Blood Thinning Medicine: * You are given Eliquis during the immediate post-operative period to lessen the risk of blood clots forming in your legs and/or lungs. Eliquis is usually given for 2-[address] Kinney will let you know when to stop taking it. Once completed you it may be recommended to take Aspirin 325mg twice daily for another 2-4 weeks. Physical Therapy: * Do your physical therapy at home. These are the exercises you learned while in the hospital (quad sets, leg raises, calf pumps, gluteal squeezes, knee bending, and heel props.) You should do these exercises 3-4 times per day. * You will either go to inpatient rehab ([facility]), home with Home Therapy and nursing or home with outpatient rehab. You should do rehab with the therapist 2-3 times per week. You should do therapy on your own daily. * You may bear full weight on your leg with crutches or walker unless otherwise advised. Home Exercise: * You were shown a series of exercises (heel props, heel slides, etc.) in the hospital. Do these exercises three to four times each day including the exercises you were shown in physical therapy. Walking: * You may be up for short periods of time. Standing and walking for 1-2 hours at a time is usually okay. You should not stand or walk for excessive periods of time as this may Cause increased pain and swelling. SELF CARE INSTRUCTIONS AFTER TOTAL KNEE REPLACEMENT A. You may need to continue a physical therapy program after discharge from the hospital. There are several options available to you. Your doctor will assist you in selecting the best one for you. 1. An out-patient facility 2 to 3 times a week for therapy or home therapy. 2. Continue working on all exercises taught to you in the hospital. Your goals should be to increase bending of your knee to 90 degrees and beyond and to fully straighten your knee. B. Your therapist will notify you when you are able to progress from a walker to a cane. C. Wear TEDS as much as possible.~ They may be removed at night for laundering. D. Do not place a pillow behind your knee when resting. A pillow at your ankle, or behind your calf is okay. E. Ice your knee 15-20 minutes every 2-3 hours and elevate it above the level of your heart. F. You may shower on the fourth day after surgery using regular soap and water. Do not submerge until the wound is completely healed (approximately 2 weeks). Until the fourth day after surgery, cover the incision/bandage with a bag or plastic wrap. G. Anyone who is touching your surgical incision area should wash their hands and wear gloves. H. Keep your incision covered with gauze pads under the KRISHNA hose until it is dry. VERY IMPORTANT TO READ AND REVIEW A. There are a few signs you need to watch for after you are home. Call [facility] if you notice any of the followin. Increased severe knee pain. Some pain is expected especially when you exercise. 2. Increased swelling in your leg or knee; pain or swelling of the calf muscle in either lower leg. 3. Any fluid drainage from the incision. 4. Shortness of breath or chest pain. 5. Numbness and tingling in the surgical extremity B. Please call [facility] at if you have any concerns or questions about your operation or recovery. The doctor or his nurse will return your call promptly. C. Do not have any elective dental work or other elective procedures done for 6 weeks after your knee replacement. When you have any invasive procedure (dental cleaning, extraction, colonoscopy etc) performed, you will need to take antibiotics to prevent infection from developing in your artificial joint. Tell your other health care providers you have an artificial joint. My office will supply you with further information and the antibiotics. Call your doctor if: * Temperature above 101 degrees F. * Pain not relieved by pain medicine ordered. * Increased drainage or redness from incision. * Notify your doctor with any questions or concerns. Follow-up Visit: You will follow-up with Dr. Kinney 10-14 days after surgery. The office number is . Avoid all tobacco products. If you need help to stop smoking, call [facility] FREE QUITLINE at . This is a free call. Call the office if there are any problems with the wound vac, or if you have any other questions The home health nurse can remove the wound vac next Thursday when treatment is completed. Pending Studies at Discharge: No Stand-Alone Forms: My [facility], Smoking Cessation Medications and DC Order Prescriptions: New sennosides [Senokot] 8.6 mg Tablet 17.2 mg PO HS Qty: 1 0RF tramadol 50 mg Tablet 50 - 100 mg PO Q4H PRN (Reason: pain) Qty: 18 0RF Rx Instructions: Pain scale 1-5 take 1 tab Pain scale 6-10 take 2 tabs Alternate with oxycodone acetaminophen [Tylenol Extra Strength] 500 mg Tablet 1,000 mg PO Q8 Qty: 30 0RF docusate sodium 100 mg Capsule 100 mg PO BID Qty: 30 0RF oxycodone 5 mg Tablet 5 - 10 mg PO Q4H PRN (Reason: pain) Qty: 18 0RF Rx Instructions: Pain scale 1-5 take 1 tab Pain scale 6-10 take 2 tabs Alternate with tramadol apixaban 2.5 mg Tablet 2.5 mg PO BID Qty: 28 1RF Continued lisinopril 10 mg Tablet 10 mg PO QAM omeprazole 20 mg Capsule,Delayed Release(Dr/Ec) 20 mg PO QAM amlodipine 5 mg Tablet 5 mg PO HS multivitamin Tablet 1 tab PO QAM atorvastatin 20 mg Tablet 20 mg PO HS cholecalciferol (vitamin D3) [Vitamin D3] 25 mcg (1,000 unit) Tablet 25 mcg PO HS Admission Data Admit Date/Time: 07/26/24 13:59 Attending Provider: Abram Kinney Admit Provider: Abram Kinney Primary Care Provider: Flavio Weston Other Providers: [facility],Home Healthcare Other Interventions: Discharge Summary Assessment (RN) Last Done: 07/27/24 11:32
[2024-07-27] MEDS ORDERED: KETOROLAC TROMETHAMINE 15 MG/ML VIAL IV SCH (21:00)
[2024-07-27] MEDS ORDERED: CeleBREX 200 MG CAP PO SCH (21:00)
== END 2024-07-27 12:45 | disposition home health service (06) ==
LOC: ASU 08:01 → 3E 08:01